=== PATIENT | female | born 1985 | race Caucasian/White ===

== ENCOUNTER 2018-11-15 18:19 | Emergency (ER) | payer SELFPAY ==
[~2018-11-15] VITALS: Ht 157.5 cm; Wt 64.1 kg
[2018-11-15 18:22] VITALS: BP 138/92
--- NOTE | 2018-11-15 18:44 | NUR ---
LAST USE OF METHADONE 2 DAYS AGO 110 MG. PT RX FOR 110 MG DAILY AND PRESCRIBED BY HER CLINIC IN [place]. PT STATES SHE CAME TO [place] AND HAS RAN OUT OF HER METHADONE. PT RESTING ON YAN. HAILE.
== END 2018-11-15 18:59 | disposition home or self-care (01) ==
LOC: ED 18:53
DX: Z76.0 Encounter for issue of repeat prescription (principal); F11.10 Opioid abuse, uncomplicated
CPT/HCPCS: 99281